=== PATIENT | female | born 1985 | race American Indian/Alaskan Native ===

== ENCOUNTER 2018-08-27 15:17 | Emergency (ER) | payer MEDICAID ==
--- NOTE | 2018-08-27 15:55 | Emergency Department Report ---
Blank Doc - Documentation Documentation: This is a 32-year-old female that presents vaginal bleeding and pelvic pain. This initial assessment/diagnostic orders/clinical plan/treatment(s) is/are subject to change based on patient's health status, clinical progression and re- assessment by fellow clinical providers in the ED. Further treatment and workup at subsequent clinical providers discretion. Patient/guardians urged not to elope from the ED as their condition may be serious if not clinically assessed and managed. Initial orders include: 1- Patient sent to [facility] for further evaluation and treatment 2- UA 3- labs
[2018-08-27 15:56] VITALS: BP 107/69
== END 2018-08-27 16:08 | disposition left against medical advice (07) ==
LOC: ED 15:17
DX: R10.2 Pelvic and perineal pain (principal); Z53.21 Procedure and treatment not carried out due to patient leaving prior to being seen by health care provider

== ENCOUNTER 2018-09-24 11:02 | Day surgery (SDC) | payer OTHER, MEDICAID ==
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
[2018-09-24] MEDS ORDERED: LACTATED RINGERS 1,000 ML ONE (11:59)
[2018-09-24] MEDS ORDERED: DILAUDID IV PRN (12:05)
--- NOTE | 2018-09-24 12:07 | Anesthesia Consultation ---
Anesthesia Consult and Med Hx Date of service: 09/24/18 - Airway Anesthetic Teeth Evaluation: Good, Caps ROM Head & Neck: Adequate Mental/Hyoid Distance: Adequate Mallampati Class: Class II Intubation Access Assessment: Probably Good - Pulmonary Exam CTA: Yes - Cardiac Exam Cardiac Exam: RRR - Pre-Operative Health Status ASA Pre-Surgery Classification: ASA1 Proposed Anesthetic Plan: General - Pulmonary Hx Smoking: No Hx Respiratory Symptoms: No Hx Sleep Apnea: No - Cardiovascular System Hx Hypertension: No Hx Heart Attack/AMI: No Hx Percutaneous Transluminal Coronary Angioplasty (PTCA): No - Central Nervous System CVA: No - Gastrointestinal Hx Gastroesophageal Reflux Disease: Yes (mild) - Endocrine Hx Renal Disease: No Hx Liver Disease: No Hx Insulin Dependent Diabetes: No Hx Non-Insulin Dependent Diabetes: No Hx Thyroid Disease: No - Other Systems Hx Alcohol Use: Yes (Occas) Hx Substance Use: Yes (occ marijuana) Hx Obesity: No - Additional Comments Anesthesia Medical History Comments: No hx anesthetic complications.
--- NOTE | 2018-09-24 12:07 | Anesthesia Day of Surgery ---
Anesthesia Day of Surgery - Day of Surgery Patient Examined: Yes Patient H&P Reviewed: Yes Patient is NPO: Yes
[2018-09-24 12:22] LABS: Hematocrit 38.5 % (30.3-42.9); Hemoglobin 12.9 gm/dl (10.1-14.3)
[2018-09-24] MEDS ORDERED: DILAUDID ONE (12:42)
[2018-09-24] MEDS ORDERED: XYLOCAINE MPF 2% ONE (12:42)
[2018-09-24] MEDS ORDERED: DIPRIVAN 10 MG/ML IV ONE (12:42)
[2018-09-24] MEDS ORDERED: LACTATED RINGERS 1,000 ML IV SCH (13:00)
[2018-09-24] MEDS ORDERED: VERSED IV NR (13:00)
--- NOTE | 2018-09-24 13:32 | Short Stay Summary ---
Short Stay Documentation Date of service: 09/24/18 - History H&P: dictated Past Medical History: other (See HPI) Past Surgical History: Other (See HPI) Social history: full code, other (See HPI) - Allergies and Medications Current Medications: Allergies No Known Allergies Allergy (Verified 09/18/18 15:04) Home Medications Medication Instructions Recorded Confirmed Last Taken Type No Known Home Medications [No 09/18/18 09/18/18 Unknown History Reported Home Medications] Active Medications Hydromorphone HCl (Dilaudid) 0.5 mg IV Q10MIN PRN PRN Reason: Pain , Severe (7-10) Stop: 09/24/18 23:59 Lactated Ringer's (Lactated Ringers) 1,000 mls @ 100 mls/hr IV DIRECT BEATRIZ Last Admin: 09/24/18 12:15 Dose: 100 mls/hr Documented by: Midazolam HCl (Versed) 2 mg IV PREOP NR Stop: 09/24/18 23:59 Last Admin: 09/24/18 12:45 Dose: 2 mg Documented by: - Brief post op/procedure progress note Date of procedure: 09/24/18 (see dictated operative note) - Hospital course Hospital course: Patient was admitted underwent the above him procedure without any complications. Patient will be discharged with follow-up in office in 1-2 weeks for postop check. - Disposition Condition at discharge: Good Disposition: [id number] TO HOME OR SELFCARE - Discharge Diagnoses (1) Missed Status: Acute (2) Displacement of intrauterine contraceptive device Status: Acute Qualifiers: Encounter type: subsequent encounter Qualified Code(s): T83.32XD - Displacement of intrauterine contraceptive device, subsequent encounter (3) Malpositioned intrauterine device (IUD) Status: Acute Qualifiers: Encounter type: subsequent encounter Qualified Code(s): T83.32XD - Displacement of intrauterine contraceptive device, subsequent encounter Short Stay Discharge Plan Activity: advance as tolerated Diet: regular Additional Instructions: Patient office for fever, chills, nausea, vomiting or pain unrelieved by pain medications. Patient was informed she may have some vaginal spotting should call the office for very heavy vaginal bleeding. Follow up with: ASHLEY MTZ [Other] - 7 Days Prescriptions: Ibuprofen [Motrin 800 MG tab] 800 mg PO Q6H PRN #30 tablet PRN Reason: Pain Acetaminophen/Codeine [Tylenol #3] 1 tab PO Q4HR PRN #15 tablet PRN Reason: Pain DOXYCYCLINE Hyclate [Vibramycin CAP] 100 mg PO Q12HR #14 capsule
[2018-09-24] MEDS ORDERED: TORADOL ONE (13:34)
[2018-09-24] MEDS ORDERED: ZOFRAN ONE (13:34)
[2018-09-24] MEDS ORDERED: NACL 0.9% IR ONE ×2 (13:35→13:36)
--- NOTE | 2018-09-24 13:39 | Operative Report ---
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 Bilaterally tubal ostia were seen. Some increased endometrial lining noted. Specimen(s): Endometrial curetting and ParaGard IUD Procedure: Patient was brought to operating room. Where general anesthesia was induced on difficulty. She was placed in the dorsal lithotomy position. Prepped and draped in usual sterile manner. Urinary bladder was emptied with a red rubber catheter. Speculum was placed in the vagina. Tenaculum was placed at 12:00. The cervix was dilated progressively to operative hysteroscope could be placed without any difficulty. The hysteroscope was placed through the cervical os without any complications with the findings noted above. After location the IUD was removed uterine forceps. Then I performed curettage with a banjo curetting until a gritty sensation was felt throughout the uterine cavity removed a moderate amount of tissue. Several passes with the polyp forceps revealed no further tissue again the banjo curetting was done without any return of further tissue. All instruments are removed. The patient tolerated the procedure well and was awakened in the operating room. Accompanied to the recovery room in good condition
[2018-09-24 14:48] VITALS: BP 99/53
--- NOTE | 2018-09-24 15:10 | Post Anesthesia Evaluation ---
- Post Anesthesia Evaluation Patient Participated: Yes Airway Patent: Yes Stable Respiratory Function: Yes Nausea/Vomiting: No Temp > 96.8F: Yes Pain Manageable: Yes Adequeate Hydration: Yes Anesthesia Complications: No
== END 2018-09-24 11:03 | disposition home or self-care (01) ==
LOC: OR 11:02
PROVIDERS: ATTEND Obstetrics & Gynecology
DX: O26.30 Retained intrauterine contraceptive device in pregnancy, unspecified trimester (principal); N85.8 Other specified noninflammatory disorders of uterus; G43.909 Migraine, unspecified, not intractable, without status migrainosus; K21.9 Gastro-esophageal reflux disease without esophagitis; Z98.891 History of uterine scar from previous surgery; Z79.899 Other long term (current) drug therapy; Z86.711 Personal history of pulmonary embolism; Z72.89 Other problems related to lifestyle; Z98.890 Other specified postprocedural states
CPT/HCPCS: 36415; 58562; 81025; 85014; 85018; 88300; 88305; A4217; J1170; J1885; J2250; J2405; J2704; J7120; 88302

== ENCOUNTER 2019-02-16 11:58 | Emergency (ER) | payer MEDICAID, OTHER ==
[2019-02-16 13:02] LABS: Amorphous Crystals,Urine Few; Bilirubin,Urine NEG (Negative); Blood,Urine NEG (Negative); Color,Urine Yellow (Yellow); Mucus,Urine 2+ /HPF
[2019-02-16 13:17] LABS: Basophils # (Auto) 0.1 K/mm3 (0.0-0.1); Basophils % (Auto) 0.4 % (0.0-1.8); Eosinophils # (Auto) 0.1 K/mm3 (0.0-0.4); Eosinophils % (Auto) 0.6 % (0.0-4.3); Hematocrit 40.8 % (30.3-42.9); Hemoglobin 13.8 gm/dl (10.1-14.3); Lymphocytes # (Auto) 1.4 K/mm3 (1.2-5.4); Lymphocytes % (Auto) 9.2 % (13.4-35.0); Mean Corpuscular HGB Conc 34 % (30-34); Mean Corpuscular Volume 85 fl (79-97); Monocytes # (Auto) 0.7 K/mm3 (0.0-0.8); Platelet Count 277 K/mm3 (140-440); Red Cell Distribution Width 13.1 % (13.2-15.2)
[2019-02-16 13:35] LABS: Alanine Aminotransferase 45 units/L (7-56); Albumin 4.1 g/dL (3.9-5); BUN/Creatinine Ratio 10; Blood Urea Nitrogen 4 mg/dL (7-17); Calcium 9.4 mg/dL (8.4-10.2); Hemolysis Index 13
[2019-02-16] MEDS ORDERED: ONDANSETRON 4 MG/2 ML INJ IV ONE (14:35)
[2019-02-16] MEDS ORDERED: LACTATED RINGERS 1,000 ML IV ONE (14:35)
[2019-02-16] MEDS ORDERED: FAMOTIDINE 20 MG/2 ML INJ IV ONE (14:42)
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
--- NOTE | 2019-02-16 15:33 | Ultrasound Report ---
ULTRASOUND OBSTETRIC Indication: Generalized abdominal pain. COMPARISON: None. Findings: There is a single intrauterine . BPD = 2.9 cm = 15 weeks, 2 day(s). Head circumference = 10.6 cm = 15 weeks, 0 day(s). Abdominal circumference = 8.2 cm = 14 weeks, 4 day(s). Femur length = 1.9 cm = 15 weeks, 5 day(s). Generalized abdominal pain. Overall estimated sonographic age = 15 weeks, 1 day(s). heart rate is 153 beats per minute. Placenta is anterior and grade 0 . Amniotic fluid volume within normal limits. Maternal adnexa appear normal. Impression: 1. Single living intrauterine with estimated sonographic age of 15 weeks, 1 day(s). Signer Name: Brii Lacey MD Signed: 02/16/2019 3:29 PM Workstation Name: [id number]
[2019-02-16] MEDS ORDERED: POTASSIUM CHLORIDE ER 20 MEQ TAB PO ONE (15:41)
[2019-02-16 17:20] VITALS: BP 130/77
== END 2019-02-16 17:19 | disposition home or self-care (01) ==
LOC: ED 11:58
DX: O26.892 Other specified pregnancy related conditions, second trimester (principal); E86.0 Dehydration; R10.9 Unspecified abdominal pain; Z86.711 Personal history of pulmonary embolism; Z3A.15 15 weeks gestation of pregnancy
CPT/HCPCS: 36415; 76810; 80053; 81001; 84702; 84703; 85025; 96374; 96375; 99284; J2405; J7120